=== PATIENT | female | born 2000 | race African-American/Black ===

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

== ENCOUNTER 2021-04-16 04:35 | Emergency (ER) | payer BC, OTHER ==
[~2021-04-16] VITALS: Ht 170.2 cm; Wt 77.0 kg
[2021-04-16 04:45] VITALS: BP 129/64
== END 2021-04-16 05:04 | disposition left against medical advice (07) ==
LOC: ER 04:35
DX: M79.606 Pain in leg, unspecified (principal)
CPT/HCPCS: 99283

== ENCOUNTER 2021-06-13 18:12 | Emergency (ER) | payer BC, OTHER ==
[~2021-06-13] VITALS: Ht 170.2 cm; Wt 85.0 kg
[2021-06-13] MEDS ORDERED: MORPHINE SULFATE 4 MG/ML CPJ (NOT FOR IM USE) IV ONE (20:30)
[2021-06-13] MEDS ORDERED: ONDANSETRON HCL 4MG/2ML INJ IV ONE (20:30)
[2021-06-13 21:18] LABS: BASOPHILS % 0.9 % (0.0-2.0); EOSINOPHILS % 0.8 % (0.0-5.0); HEMATOCRIT. 38.4 % (36.0-48.0); HEMOGLOBIN. 12.1 g/dL (12.0-16.0); LYMPHOCYTES % 26.8 % (20.0-50.0); MEAN CORPUSCULAR HEMOGLOBIN 23.5 pg (28.0-32.0); MEAN CORPUSCULAR VOLUME 74.4 fL (81.0-99.0); MEAN PLATELET VOLUME 9.2 fl (7.4-10.4); MONOCYTES % 6.7 % (2.0-8.0); NEUTROPHILS % 64.8 % (40.0-76.0); PLATELET 255 x1000/uL (130-400); RED BLOOD CELL COUNT 5.16 mill/uL (4.2-5.4); RED CELL DISTRIBUTION WIDTH 18.6 % (11.6-14.6)
[2021-06-13 21:28] LABS: CHLORIDE 112 mEq/L (98-107)
[2021-06-13 21:35] LABS: HCG SCREEN NEGATIVE
[2021-06-13] MEDS ORDERED: IOHEXOL-300 100 ML BOTTLE ONE (23:11)
[2021-06-14] MEDS ORDERED: KETOROLAC 15MG/ML VIAL IV ONE
[2021-06-14] MEDS ORDERED: HYDROCODONE/ACETAMINOPHEN 5/325MG TABLET PO ONE (01:15)
[2021-06-14 01:52] VITALS: BP 132/76
== END 2021-06-14 02:26 | disposition home or self-care (01) ==
LOC: ER 18:21
DX: R10.9 Unspecified abdominal pain (principal); M25.561 Pain in right knee; F12.10 Cannabis abuse, uncomplicated
CPT/HCPCS: 36415; 71045; 73562; 73610; 74177; 80053; 83690; 84484; 84703; 85025; 93005; 96374; 96375; 99285; J1885; J2270; J2405; Q9967

== ENCOUNTER 2021-06-25 12:15 | Inpatient (IN) | payer BC, OTHER ==
[~2021-06-25] VITALS: Ht 172.7 cm; Wt 95.7 kg
[2021-06-25] MEDS: PIPERACILLIN/TAZ 3.375G PREMIX 50 ML IV SCH (01:45)
[2021-06-25] MEDS ORDERED: TETRACAINE 0.5% OPHTH DROPS 4ML BOTHEYE ONE (14:00)
[2021-06-25] MEDS ORDERED: FLUORESCEIN SODIUM 1MG/STRIP BOTHEYE ONE (14:00)
[2021-06-25] MEDS ORDERED: TETRACAINE 0.5% OPHTH DROPS 4ML BOTHEYE NR (15:15)
[2021-06-25] MEDS ORDERED: FLUORESCEIN SODIUM 1MG/STRIP BOTHEYE NR (15:15)
[2021-06-25] MEDS ORDERED: HYDROCODONE/ACETAMINOPHEN 5/325MG TABLET PO ONE (15:45)
[2021-06-25 16:42] LABS: BASOPHILS % 0.5 % (0.0-2.0); EOSINOPHILS % 0.8 % (0.0-5.0); HEMATOCRIT. 35.6 % (36.0-48.0); LYMPHOCYTES % 19.7 % (20.0-50.0); MEAN CORPUSCULAR HEMOGLOBIN 23.4 pg (28.0-32.0); MEAN CORPUSCULAR VOLUME 75.4 fL (81.0-99.0); MEAN PLATELET VOLUME 9.5 fl (7.4-10.4); MONOCYTES % 7.7 % (2.0-8.0); NEUTROPHILS % 71.3 % (40.0-76.0); PLATELET 223 x1000/uL (130-400); RED BLOOD CELL COUNT 4.73 mill/uL (4.2-5.4); RED CELL DISTRIBUTION WIDTH 18.8 % (11.6-14.6)
[2021-06-25 16:57] LABS: CHLORIDE 111 mEq/L (98-107)
[2021-06-25 17:06] LABS: HCG SCREEN NEGATIVE
[2021-06-25] MEDS ORDERED: MORPHINE SULFATE 4 MG/ML CPJ (NOT FOR IM USE) IV ONE (17:15)
[2021-06-25] MEDS ORDERED: FLUORESCEIN SODIUM 1MG/STRIP LEFTEYE ONE (18:00)
[2021-06-25] MEDS ORDERED: VANCOMYCIN 1G PREMIX 200 ML IV SCH (18:30)
[2021-06-25] MEDS ORDERED: ATROPINE SULFATE 1% OPHTH 2ML LEFTEYE NR (18:30)
[2021-06-25] MEDS ORDERED: MORPHINE SULFATE 2 MG/ML CPJ (NOT FOR IM USE) IV NR (18:30)
[2021-06-25] MEDS ORDERED: CIPROFLOXACIN 0.3% OPHTH SOLN 2.5ML LEFTEYE NR (18:30)
[2021-06-25] MEDS ORDERED: HYDROCODONE/ACETAMINOPHEN 5/325MG TABLET PO PRN (18:42)
[2021-06-25] MEDS ORDERED: VANCOMYCIN 1,000 MG in DEXT 5% WATER 250 ML IV NR (18:45)
[2021-06-25] MEDS ORDERED: DIPHENHYDRAMINE 50MG/ML VIAL IV ONE (21:00)
[2021-06-25] MEDS ORDERED: GUAIFENESIN 200MG/10ML SUGAR FREE UDC PO PRN (21:30)
[2021-06-25] MEDS ORDERED: DIPHENHYDRAMINE 50MG/ML VIAL IV PRN (21:30)
[2021-06-25] MEDS ORDERED: ONDANSETRON HCL 4MG/2ML INJ IV PRN (21:30)
[2021-06-25] MEDS ORDERED: HYDRALAZINE 20MG/ML VIAL IV PRN (21:30)
[2021-06-25] MEDS ORDERED: MAGNESIUM/ALUMINUM HYDROXIDE/SIMETHICONE 30ML UDC PO PRN (21:30)
[2021-06-25] MEDS ORDERED: IPRATROPIUM/ALBUTEROL 0.5-3(2.5)MG/3ML NEB HHN PRN (21:30)
[2021-06-25] MEDS ORDERED: ACETAMINOPHEN 325MG TABLET PO PRN (21:30)
[2021-06-25] MEDS ORDERED: CLONIDINE 0.1MG TABLET PO PRN (21:30)
[2021-06-25] MEDS ORDERED: DOCUSATE SODIUM 100MG CAPSULE PO PRN (21:30)
[2021-06-25] MEDS: SODIUM CHLORIDE 0.9% INJ 3ML FLUSH IVF SCH (22:00)
[2021-06-25] MEDS: SODIUM CHLORIDE 0.45% 1,000 ML IV SCH (22:40)
[2021-06-26] MEDS: MORPHINE SULFATE 2 MG/ML CPJ (NOT FOR IM USE) IV PRN ×5 (00:22→23:57)
[2021-06-26] MEDS: PIPERACILLIN/TAZ 3.375G PREMIX 50 ML IV SCH (01:45)
[2021-06-26] MEDS: SODIUM CHLORIDE 0.9% INJ 3ML FLUSH IVF SCH ×3 (05:25→22:11)
[2021-06-26] MEDS: PREDNISOLONE ACETATE 1% OPHTH DROPS 5ML LEFTEYE SCH ×5 (05:48→22:18)
[2021-06-26] MEDS: NEO/POLYMYX B SULF/DEXAMETH OPHTH OINT 3.5GM LEFTEYE SCH ×3 (05:48→22:12)
[2021-06-26] MEDS: ENOXAPARIN 30MG/0.3ML SYR SUBCUT SCH ×2 (09:00→22:11)
[2021-06-26 10:00] VITALS: BP 123/58
[2021-06-26 12:15] LABS: BASOPHILS % 0.6 % (0.0-2.0); EOSINOPHILS % 1.4 % (0.0-5.0); HEMATOCRIT. 34.9 % (36.0-48.0); HEMOGLOBIN. 10.9 g/dL (12.0-16.0); LYMPHOCYTES % 18.7 % (20.0-50.0); MEAN CORPUSCULAR HEMOGLOBIN 23.3 pg (28.0-32.0); MEAN CORPUSCULAR VOLUME 74.8 fL (81.0-99.0); MEAN PLATELET VOLUME 9.4 fl (7.4-10.4); MONOCYTES % 7.3 % (2.0-8.0); PLATELET 238 x1000/uL (130-400); RED BLOOD CELL COUNT 4.66 mill/uL (4.2-5.4); RED CELL DISTRIBUTION WIDTH 18.7 % (11.6-14.6)
[2021-06-26 12:22] LABS: CHLORIDE 112 mEq/L (98-107)
[2021-06-26] MEDS ORDERED: PIPERACILLIN/TAZ 3.375G PREMIX 50 ML IV SCH (16:00)
[2021-06-26] MEDS: SODIUM CHLORIDE 0.45% 1,000 ML IV SCH (16:58)
[2021-06-26] MEDS: PIPERACILLIN/TAZOBACTAM 3.375 G in DEXTROSE 5% WATER 50 ML IV SCH ×2 (17:00→22:17)
[2021-06-26 20:02] VITALS: BP 132/81
[2021-06-27 00:04] VITALS: BP 109/60
[2021-06-27] MEDS: LORAZEPAM 2MG/ML CPJ IV PRN ×2 (01:04→23:04)
[2021-06-27 04:01] VITALS: BP 110/70
[2021-06-27] MEDS: PREDNISOLONE ACETATE 1% OPHTH DROPS 5ML LEFTEYE SCH ×5 (05:55→23:21)
[2021-06-27] MEDS: PIPERACILLIN/TAZOBACTAM 3.375 G in DEXTROSE 5% WATER 50 ML IV SCH ×3 (05:55→21:46)
[2021-06-27] MEDS: NEO/POLYMYX B SULF/DEXAMETH OPHTH OINT 3.5GM LEFTEYE SCH ×4 (05:55→21:58)
[2021-06-27] MEDS: SODIUM CHLORIDE 0.9% INJ 3ML FLUSH IVF SCH ×3 (05:56→21:47)
[2021-06-27] MEDS: SODIUM CHLORIDE 0.45% 1,000 ML IV SCH ×2 (05:57→21:50)
[2021-06-27] MEDS: MORPHINE SULFATE 2 MG/ML CPJ (NOT FOR IM USE) IV PRN ×4 (06:17→22:13)
[2021-06-27] MEDS: ENOXAPARIN 30MG/0.3ML SYR SUBCUT SCH ×2 (09:00→21:00)
[2021-06-27] MEDS ORDERED: VANCOMYCIN HCL 500 MG/VIAL OP SCH ×2 (09:15→09:30)
[2021-06-27] MEDS ORDERED: CEFTAZIDIME PENTAHYDRATE 1G/VIAL IV SCH (09:30)
[2021-06-27] MEDS ORDERED: SUCCINYLCHOLINE CHLORIDE 200MG/10ML IV ONE (09:37)
[2021-06-27] MEDS ORDERED: GLYCOPYRROLATE 0.2 MG/ML 2ML VIAL ONE (09:39)
[2021-06-27] MEDS ORDERED: FENTANYL CITRATE/PF 50MCG/ML 2ML VIAL ONE (09:39)
[2021-06-27] MEDS ORDERED: NEOSTIGMINE METHYLSULFATE 1MG/ML 10 ML VIAL ONE (09:39)
[2021-06-27] MEDS ORDERED: MIDAZOLAM HCL 2 MG/2 ML VIAL ONE (09:40)
[2021-06-27] MEDS ORDERED: PROPOFOL 200MG/20ML VIAL IV ONE (09:42)
[2021-06-27] MEDS ORDERED: ROCURONIUM BROMIDE 10MG/ML VIAL 5ML IV ONE (09:45)
[2021-06-27] MEDS ORDERED: NEO/POLYMYX B SULF/DEXAMETH OPHTH OINT 3.5GM ONE (10:03)
[2021-06-27] MEDS ORDERED: PREDNISOLONE ACETATE 1% OPHTH DROPS 5ML ONE (10:03)
[2021-06-27] MEDS ORDERED: LIDOCAINE HCL/PF 2% 20 MG/ML 10ML VIAL ONE (10:03)
[2021-06-27] MEDS ORDERED: CIPROFLOXACIN 0.3% OPHTH SOLN 2.5ML ONE (10:03)
[2021-06-27] MEDS ORDERED: PHENYLEPHRINE HCL 2.5% OPHTH DROPS 2ML ONE (10:03)
[2021-06-27] MEDS ORDERED: BALANCED SALT IRRIG SOLN 15ML ONE (10:03)
[2021-06-27] MEDS ORDERED: MEPERIDINE HCL/PF 25MG/ML CPJ IV PRN (10:15)
[2021-06-27] MEDS ORDERED: HYDROMORPHONE HCL/PF 2MG/ML CPJ IV PRN (10:15)
[2021-06-27] MEDS ORDERED: ONDANSETRON HCL 4MG/2ML INJ IV PRN (10:15)
[2021-06-27] MEDS ORDERED: LABETALOL 5MG/ML SYR 20 MG/4 ML SYRINGE IV PRN (10:15)
[2021-06-27 13:47] VITALS: BP 100/52
[2021-06-27] MEDS ORDERED: NALOXONE HCL 0.4MG/ML VIAL IV PRN (15:15)
[2021-06-27 16:00] VITALS: BP 142/98
[2021-06-27 20:00] VITALS: BP 124/61
[2021-06-28] VITALS: BP 119/70
[2021-06-28] MEDS: MORPHINE SULFATE 2 MG/ML CPJ (NOT FOR IM USE) IV PRN (03:58)
[2021-06-28 04:00] VITALS: BP 100/48
[2021-06-28] MEDS: LORAZEPAM 2MG/ML CPJ IV PRN (05:06)
[2021-06-28] MEDS: PREDNISOLONE ACETATE 1% OPHTH DROPS 5ML LEFTEYE SCH (05:54)
[2021-06-28] MEDS: NEO/POLYMYX B SULF/DEXAMETH OPHTH OINT 3.5GM LEFTEYE SCH (05:54)
[2021-06-28] MEDS: PIPERACILLIN/TAZOBACTAM 3.375 G in DEXTROSE 5% WATER 50 ML IV SCH ×2 (06:07→16:10)
[2021-06-28] MEDS: SODIUM CHLORIDE 0.9% INJ 3ML FLUSH IVF SCH ×2 (06:07→16:11)
[2021-06-28 08:00] VITALS: BP 114/62
[2021-06-28] MEDS: ENOXAPARIN 30MG/0.3ML SYR SUBCUT SCH (09:00)
[2021-06-28 10:37] VITALS: BP 114/62
[2021-06-28 12:00] VITALS: BP 122/68
[2021-06-28] MEDS ORDERED: IBUPROFEN 600MG TABLET PO PRN (14:15)
[2021-06-28] MEDS ORDERED: HYDROCODONE/ACETAMINOPHEN 5/325MG TABLET PO PRN (14:15)
[2021-06-28] MEDS: SODIUM CHLORIDE 0.45% 1,000 ML IV SCH (16:10)
[2021-06-28] MEDS ORDERED: CIPROFLOXACIN 0.3% OPHTH SOLN 2.5ML LEFTEYE SCH (17:00)
[2021-06-28] MEDS ORDERED: PREDNISOLONE ACETATE 1% OPHTH DROPS 5ML LEFTEYE SCH (18:00)
== END 2021-06-28 18:00 | disposition home or self-care (01) | DRG 117 ==
LOC: ER 12:15 → MICUSO 19:27 → 6EST 06-26 10:15
PROVIDERS: ADMIT Internal Medicine; ATTEND Internal Medicine
PROC: 08Q9XZZ Repair Left Cornea, External Approach (ICD-10-PCS; principal; 2021-06-27)
DX: S05.62XA Penetrating wound without foreign body of left eyeball, initial encounter (principal); E66.9 Obesity, unspecified; Z68.32 Body mass index [BMI] 32.0-32.9, adult; Z20.822 Contact with and (suspected) exposure to COVID-19; D64.9 Anemia, unspecified; H54.62 Unqualified visual loss, left eye, normal vision right eye; F31.9 Bipolar disorder, unspecified; W26.8XXA Contact with other sharp object(s), not elsewhere classified, initial encounter; Y93.89 Activity, other specified; Y92.89 Other specified places as the place of occurrence of the external cause; Y99.8 Other external cause status
CPT/HCPCS: 36415; 70486; 80053; 84703; 85025; 87426; 99285; J0330; J0713; J1200; J1650; J2060; J2250; J2270; J2543; J2704; J2710; J3010; J3370; J3490; J7060